=== PATIENT | female | born 1985 | race Hispanic/Latino ===

== ENCOUNTER 2017-08-28 18:41 | Outpatient (CLI) | payer MEDICAID ==
[2017-08-28 18:57] VITALS: BP 141/89
[2017-08-28] MEDS ORDERED: LACTATED RINGERS 500 ML IV ONE (19:00)
== END 2017-08-28 21:25 | disposition home or self-care (01) ==
LOC: TRG 18:41
PROVIDERS: ATTEND Obstetrics & Gynecology Gynecology
DX: O47.03 False labor before 37 completed weeks of gestation, third trimester (principal); Z3A.31 31 weeks gestation of pregnancy
CPT/HCPCS: 59025

== ENCOUNTER 2017-09-01 17:38 | Outpatient (CLI) | payer MEDICAID ==
[2017-09-01 18:37] VITALS: BP 130/66
[2017-09-01 19:27] LABS: Hematocrit 34.1 % (30.3-42.9); Hemoglobin 11.5 gm/dl (10.1-14.3); Mean Corpuscular HGB Conc 34 % (30-34); Mean Corpuscular Hemoglobin 29 pg (28-32); Mean Corpuscular Volume 87 fl (79-97); Platelet Count 208 K/mm3 (140-440); Red Blood Count 3.93 M/mm3 (3.65-5.03); Red Cell Distribution Width 12.9 % (13.2-15.2)
[2017-09-01 19:55] LABS: Alanine Aminotransferase 8 units/L (7-56); Uric Acid 2.8 mg/dL (3.5-7.6)
[2017-09-01 20:26] LABS: Bacteria,Urine 2+ /HPF (Negative); Bilirubin,Urine NEG (Negative); Blood,Urine NEG (Negative); Color,Urine Yellow (Yellow); Hyaline Casts,Urine 1 /LPF; Nitrite,Urine NEG (Negative); Protein,Urine <15 mg/dL mg/dL (Negative); Urobilinogen,Urine < 2.0 mg/dL (<2.0)
== END 2017-09-01 20:10 | disposition home or self-care (01) ==
LOC: TRG 17:38
PROVIDERS: ATTEND Obstetrics & Gynecology
DX: O47.03 False labor before 37 completed weeks of gestation, third trimester (principal); Z3A.32 32 weeks gestation of pregnancy
CPT/HCPCS: 36415; 59025; 81001; 82565; 83615; 84450; 84460; 84550; 85027

== ENCOUNTER 2017-09-16 14:39 | Outpatient (CLI) | payer MEDICAID ==
[2017-09-16 15:13] VITALS: BP 142/72
[2017-09-16] MEDS ORDERED: LACTATED RINGERS 500 ML IV ONE (17:17)
[2017-09-16 18:08] LABS: Bacteria,Urine 1+ /HPF (Negative); Bilirubin,Urine NEG (Negative); Blood,Urine NEG (Negative); Color,Urine Yellow (Yellow); Mucus,Urine 2+ /HPF; Nitrite,Urine NEG (Negative); Urobilinogen,Urine < 2.0 mg/dL (<2.0)
== END 2017-09-16 18:55 | disposition home or self-care (01) ==
LOC: TRG 14:39
PROVIDERS: ATTEND Obstetrics & Gynecology
DX: O47.03 False labor before 37 completed weeks of gestation, third trimester (principal); Z3A.34 34 weeks gestation of pregnancy
CPT/HCPCS: 59025; 81001

== ENCOUNTER 2017-09-29 14:50 | Outpatient (CLI) | payer MEDICAID ==
[2017-09-29 16:00] LABS: Hematocrit 35.2 % (30.3-42.9); Hemoglobin 11.5 gm/dl (10.1-14.3); Mean Corpuscular HGB Conc 33 % (30-34); Mean Corpuscular Hemoglobin 28 pg (28-32); Mean Corpuscular Volume 84 fl (79-97); Platelet Count 212 K/mm3 (140-440); Red Blood Count 4.17 M/mm3 (3.65-5.03); Red Cell Distribution Width 13.6 % (13.2-15.2)
[2017-09-29 16:15] LABS: Alanine Aminotransferase 7 units/L (7-56); Uric Acid 2.9 mg/dL (3.5-7.6)
[2017-09-29 16:23] VITALS: BP 116/67
[2017-09-29 18:04] LABS: Bilirubin,Urine NEG (Negative); Blood,Urine NEG (Negative); Color,Urine Yellow (Yellow); Mucus,Urine 1+ /HPF; Nitrite,Urine NEG (Negative)
[2017-09-29 18:06] LABS: Amphetamine Screen,Urine PRESUMPTIVE NEGATIVE; Benzodiazepines Screen,Urine PRESUMPTIVE NEGATIVE; Cannabinoid Screen,Urine PRESUMPTIVE NEGATIVE; Cocaine Screen,Urine PRESUMPTIVE NEGATIVE; Methadone Screen,Urine PRESUMPTIVE NEGATIVE; Opiate Screen,Urine PRESUMPTIVE NEGATIVE
== END 2017-09-29 17:35 | disposition home or self-care (01) ==
LOC: TRG 14:50
PROVIDERS: ATTEND Obstetrics & Gynecology
DX: O47.03 False labor before 37 completed weeks of gestation, third trimester (principal); Z3A.36 36 weeks gestation of pregnancy
CPT/HCPCS: 36415; 59025; 80307; 81001; 82565; 83615; 84450; 84460; 84550; 85027

== ENCOUNTER 2021-08-30 13:04 | Outpatient (CLI) | payer MEDICAID ==
[2021-08-30 15:30] VITALS: BP 131/74
--- NOTE | 2021-08-30 16:00 | Ultrasound Report ---
ULTRASOUND OBSTETRIC LIMITED ULTRASOUND BIOPHYSICAL PROFILE INDICATION / CLINICAL INFORMATION: BPP/AURELIO, placenta for vaginal bleeding. COMPARISON: None available. FINDINGS: BREATHING MOVEMENT = 2 GROSS BODY MOVEMENT = 2 TONE = 2 QUALITATIVE AMNIOTIC FLUID VOLUME = 2 TOTAL BIOPHYSICAL SCORE = 8/8 HEART RATE (beats per minute): 140 AMNIOTIC FLUID INDEX (cm) = 19.3 (normal = 7-24 cm) PRESENTATION: Cephalic. ADDITIONAL FINDINGS: None. IMPRESSION: 1. Biophysical Score = 8/8 Signer Name: Shahram Osorio MD Signed: 08/30/2021 3:55 PM Workstation Name: [id number]
== END 2021-08-30 16:20 | disposition home or self-care (01) ==
LOC: TRG 13:04 → APU 13:06 → TRG 16:20
PROVIDERS: ATTEND Obstetrics & Gynecology
DX: O46.93 Antepartum hemorrhage, unspecified, third trimester (principal); Z3A.35 35 weeks gestation of pregnancy
CPT/HCPCS: 59025; 76815; 76819

== ENCOUNTER 2021-09-03 00:53 | Outpatient (CLI) | payer MEDICAID ==
[2021-09-03 02:07] VITALS: BP 128/64
== END 2021-09-03 01:30 | disposition home or self-care (01) ==
LOC: TRG 00:53 → APU 00:56 → TRG 01:30
PROVIDERS: ATTEND Obstetrics & Gynecology
DX: Z34.93 Encounter for supervision of normal pregnancy, unspecified, third trimester (principal); Z3A.36 36 weeks gestation of pregnancy
CPT/HCPCS: 59025

== ENCOUNTER 2021-09-03 18:57 | Outpatient (CLI) | payer MEDICAID ==
[2021-09-03 20:07] VITALS: BP 128/72
[2021-09-03] MEDS ORDERED: LACTATED RINGERS 500 ML IV ONE (20:25)
== END 2021-09-03 20:51 | disposition home or self-care (01) ==
LOC: TRG 18:57 → APU 18:59 → TRG 20:51
PROVIDERS: ATTEND Obstetrics & Gynecology
DX: Z34.93 Encounter for supervision of normal pregnancy, unspecified, third trimester (principal); Z3A.36 36 weeks gestation of pregnancy
CPT/HCPCS: 59025

== ENCOUNTER 2021-09-15 19:46 | Inpatient (IN) | payer MEDICAID ==
[2021-09-15] MEDS ORDERED: MINERAL OIL 30 ML ORAL LIQD PO PRN (22:05)
[2021-09-15] MEDS ORDERED: CARBOPROST TROMETHAMINE 250 MCG/1 ML INJ IM PRN (22:05)
[2021-09-15] MEDS ORDERED: DINOPROSTONE 10 MG VAG SUPP VG ONE (22:05)
[2021-09-15] MEDS ORDERED: TERBUTALINE 1 MG/1 ML INJ SUB-Q PRN (22:05)
[2021-09-15] MEDS ORDERED: ACETAMINOPHEN 325 MG TAB PO PRN (22:05)
[2021-09-15] MEDS ORDERED: BUTORPHANOL 2 MG/1 ML INJ IV PRN ×2 (22:05)
[2021-09-15] MEDS ORDERED: LOPERAMIDE 2 MG CAP PO PRN (22:05)
[2021-09-15] MEDS ORDERED: LIDOCAINE (2%) 20 MG/1 ML VIAL 20 ML MDV INFILTRATI ONE (22:05)
[2021-09-15] MEDS ORDERED: ePHEDrine SULFATE 50 MG/1 ML INJ IV PRN (22:05)
[2021-09-15] MEDS ORDERED: METHYLERGONOVINE MALEATE 0.2 MG/ML VIAL IM PRN (22:05)
[2021-09-15] MEDS ORDERED: miSOPROStol 200 MCG TAB PR PRN (22:05)
[2021-09-15] MEDS ORDERED: OXYTOCIN 10 UNIT/1 ML INJ IM PRN (22:05)
[2021-09-15] MEDS ORDERED: fentaNYL 100 MCG/2 ML INJ IV PRN (22:05)
[2021-09-15] MEDS ORDERED: ZOLPIDEM 5 MG TAB PO PRN (22:13)
[2021-09-15] MEDS ORDERED: OXYTOCIN DRIP 30 UNITS/500 ML BAG IV SCH (23:00)
[2021-09-15 23:13] LABS: Hematocrit 29.8 % (30.3-42.9); Hemoglobin 9.3 gm/dl (10.1-14.3); Mean Corpuscular HGB Conc 31 % (30-34); Mean Corpuscular Volume 77 fl (79-97); Platelet Count 205 K/mm3 (140-440); Red Blood Count 3.89 M/mm3 (3.65-5.03); Red Cell Distribution Width 16.1 % (13.2-15.2)
[2021-09-16] MEDS: LACTATED RINGERS 1,000 ML IV SCH ×3 (05:07→22:20)
--- NOTE | 2021-09-16 08:33 | History and Physical Report ---
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 has been complicated by morbid obesity, GDM, anemia and CHTN (co-managed by [facility]). She presents to [facility] last night for scheduled IOL secondary to GDM, CHTN and MO. Reports positive FM. Denies any VB or LOF. Labs: O+, antibody negative; rubella immune; HBsAg negative HIV negative; HSV2 ne gative; Miguel Angel C negative; GC/Chlamydia negative; 1hr gtt 155; TSH 4.9; AST- 11; ALT-5; GBS negative. Past History Past Medical History: hypertension (chronic), other (anemia; morbid obesity) Past Surgical History: no surgical history Family/Genetic History: diabetes, heart disease, hypertension, other (thyroid disease) Social history: single, lives with family, full code. denies: smoking, alcohol abuse, prescription drug abuse, IV drug use - Obstetrical History Expected Date of Delivery: 09/29/21 Actual Gestation: 38 Week(s) 1 Day(s) : 2 Para: 1 Hx # Term Pregnancies: 1 Number of Pregnancies: 0 Spontaneous Abortions: 0 Induced : 0 Number of Living Children: 1 #1 Infant Gender: Female year: Method of Delivery: Vaginal Gestational age at delivery: 41 Complications: none Medications and Allergies Allergies Allergy/AdvReac Type Severity Reaction Status Date / Time Penicillins Allergy Anaphylaxis Verified 08/30/21 13:19 Home Medications Medication Instructions Recorded Confirmed Last Taken Type 21/Iron Fu/Folic Acid 1 each PO DAILY 08/28/17 09/03/21 09/02/21 10:00 History [ Complete Caplet] labetaloL [Labetalol 100mg TAB] 100 mg PO BID #60 tablet 10/27/17 09/03/21 09/03/21 01:30 Rx Active Meds: Active Medications Acetaminophen (Acetaminophen 325 Mg Tab) 650 mg PO Q4H PRN PRN Reason: Pain, Mild (1-3) Butorphanol Tartrate (Butorphanol 2 Mg/1 Ml Inj) 1 mg IV Q2H PRN PRN Reason: Pain, Moderate(4-6) LABOR PAIN Last Admin: 09/16/21 05:00 Dose: 1 mg Butorphanol Tartrate (Butorphanol 2 Mg/1 Ml Inj) 2 mg IV Q2H PRN PRN Reason: Pain , Severe (7-10) Carboprost Tromethamine (Carboprost Tromethamine 250 Mcg/1 Ml Inj) 250 mcg IM ONCE PRN PRN Reason: Uterine Bleeding Ephedrine Sulfate (Ephedrine Sulfate 50 Mg/1 Ml Inj) 10 mg IV Q2M PRN PRN Reason: Hypotension Fentanyl (Fentanyl 100 Mcg/2 Ml Inj) 100 mcg IV Q2H PRN PRN Reason: Pain,Severe (7-10) LABOR PAIN Oxytocin/Sodium Chloride (Pitocin/Ns 30 Unit/500ml) 30 units in 500 mls @ 2 mls/hr IV TITR MINDY; Protocol Lactated Ringer's (Lactated Ringers) 1,000 mls @ 125 mls/hr IV DIRECT MINDY Last Admin: 09/16/21 05:07 Dose: 125 mls/hr Oxytocin/Sodium Chloride (Pitocin/Ns 30 Unit/500ml) 30 units in 500 mls @ 40 mls/hr IV TITR MINDY; Protocol Labetalol HCl (Labetalol 100 Mg Tab) 100 mg PO BID MINDY Loperamide HCl (Loperamide 2 Mg Cap) 2 mg PO ONCE PRN PRN Reason: give with Hemabate Mineral Oil (Mineral Oil 30 Ml Oral Liqd) 30 ml PO QHS PRN PRN Reason: Constipation Misoprostol (Misoprostol 200 Mcg Tab) 800 mcg VA ONCE PRN PRN Reason: Uterine Bleeding Oxytocin (Oxytocin 10 Unit/1 Ml Inj) 10 unit IM ONCE PRN PRN Reason: Uterine Bleeding Terbutaline Sulfate (Terbutaline 1 Mg/1 Ml Inj) 0.25 mg SUB-Q ONCE PRN PRN Reason: Hyperstimulation/Hypertonicity Zolpidem Tartrate (Zolpidem 5 Mg Tab) 5 mg PO QHS PRN PRN Reason: Sleep Last Admin: 09/16/21 01:40 Dose: 5 mg - Vital Signs Vital signs: Vital Signs Temp Pulse Resp BP 98.2 F 94 H 12 138/63 09/15/21 21:29 09/15/21 21:29 09/15/21 21:29 09/15/21 21:29 Temp Pulse Resp BP Pulse Ox 98.2 F 102 H 12 114/62 99 09/15/21 21:29 09/16/21 08:25 09/15/21 21:29 09/16/21 07:28 09/16/21 08:25 - Physical Exam Breasts: Positive: normal Cardiovascular: Regular rate Lungs: Positive: Normal air movement Abdomen: Positive: other (obese) Genitourinary (Female): Positive: normal external genitalia Uterus: Positive: enlarged (S>D) - Obstetrical FHR: category 1 Uterine Contraction Monitor Mode: External Uterine Contraction Pattern: Irregular Uterine Tone Measurement Phase: Resting Uterine Contraction Intensity: Mild Results Result Diagrams: 09/15/21 21:45 Abnormal lab results 09/15/21 Range/Units 21:45 Hgb 9.3 L (10.1-14.3) gm/dl Hct 29.8 L (30.3-42.9) % MCV 77 L (79-97) fl MCH 24 L (28-32) pg RDW 16.1 H (13.2-15.2) % All other labs normal. Assessment and Plan - Patient Problems (1) Encounter for induction of labor Current Visit: Yes Status: Acute Plan to address problem: Cervidil in place, remove after 12 hrs Pain meds as desired per orders Anticipate (2) Chronic hypertension Current Visit: Yes Status: Acute Plan to address problem: Monitor B/P closely (3) Gestational diabetes Current Visit: Yes Status: Acute Qualifiers: Gestational diabetes mellitus control: diet-controlled Plan to address problem: Monitor B/P as ordered (4) Morbid obesity with BMI of 50.0-59.9, adult Current Visit: Yes Status: Acute
--- NOTE | 2021-09-16 14:09 | Progress Note ---
Assessment and Plan - Patient Problems (1) Encounter for induction of labor Current Visit: Yes Status: Acute Plan to address problem: S/P Cervidil Initiate cytotec 50mcg po q 4 hr x 4 doses as tolerated Pain meds as desired per orders Anticipate (2) Chronic hypertension Current Visit: Yes Status: Acute Plan to address problem: Monitor B/P closely (3) Gestational diabetes Current Visit: Yes Status: Acute Qualifiers: Gestational diabetes mellitus control: diet-controlled Plan to address problem: Monitor B/P as ordered (4) Morbid obesity with BMI of 50.0-59.9, adult Current Visit: Yes Status: Acute Subjective - Subjective Date of service: 09/16/21 Principal diagnosis: IOL; CHTN; GDM Interval history: 36 yo, @ 38.1 wks, 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 has been complicated by morbid obesity, GDM, anemia and CHTN (co-managed by [facility]). She presents to [facility] last night for scheduled IOL secondary to GDM, CHTN and MO. Reports positive FM. Denies any VB or LOF. Labs: O+, antibody negative; rubella immune; HBsAg negative HIV negative; HSV2 negative; Miguel Angel C negative; GC/Chlamydia negative; 1hr gtt 155; TSH 4.9; AST- 11; ALT-5; GBS negative. Patient reports: movement normal, contractions, no new complaints, no loss of fluid, no vaginal bleeding Objective - Vital Signs Vital Signs: Vital Signs - 12hr 09/16/21 09/16/21 09/16/21 02:09 02:14 02:19 Temperature Pulse Rate 90 85 111 H Respiratory Rate Blood Pressure O2 Sat by Pulse 97 97 96 Oximetry 09/16/21 09/16/21 09/16/21 02:24 02:29 02:30 Temperature Pulse Rate 109 H 92 H 95 H Respiratory Rate Blood Pressure 120/60 O2 Sat by Pulse 96 96 Oximetry 09/16/21 09/16/21 09/16/21 02:34 02:39 02:44 Temperature Pulse Rate 106 H 104 H 121 H Respiratory Rate Blood Pressure O2 Sat by Pulse 98 97 96 Oximetry 09/16/21 09/16/21 09/16/21 02:49 02:54 02:59 Temperature Pulse Rate 97 H 98 H 111 H Respiratory Rate Blood Pressure O2 Sat by Pulse 97 96 98 Oximetry 09/16/21 09/16/21 09/16/21 03:04 03:07 03:09 Temperature Pulse Rate 95 H 89 112 H Respiratory Rate Blood Pressure O2 Sat by Pulse 98 94 96 Oximetry 09/16/21 09/16/21 09/16/21 03:14 03:19 03:24 Temperature Pulse Rate 92 H 113 H 103 H Respiratory Rate Blood Pressure O2 Sat by Pulse 97 98 98 Oximetry 09/16/21 09/16/21 09/16/21 03:29 03:34 03:39 Temperature Pulse Rate 94 H 101 H 101 H Respiratory Rate Blood Pressure 119/77 O2 Sat by Pulse 98 98 98 Oximetry 09/16/21 09/16/21 09/16/21 03:44 03:49 03:54 Temperature Pulse Rate 86 108 H 106 H Respiratory Rate Blood Pressure O2 Sat by Pulse 98 98 98 Oximetry 09/16/21 09/16/21 09/16/21 03:59 04:00 04:04 Temperature Pulse Rate 101 H 112 H 105 H Respiratory Rate Blood Pressure 124/64 O2 Sat by Pulse 99 94 96 Oximetry 09/16/21 09/16/21 09/16/21 04:09 04:14 04:19 Temperature Pulse Rate 112 H 108 H 90 Respiratory Rate Blood Pressure O2 Sat by Pulse 99 98 96 Oximetry 09/16/21 09/16/21 09/16/21 04:24 04:29 04:30 Temperature Pulse Rate 86 117 H 105 H Respiratory Rate Blood Pressure 117/76 O2 Sat by Pulse 97 98 Oximetry 09/16/21 09/16/21 09/16/21 04:31 04:34 04:39 Temperature Pulse Rate 113 H 97 H 126 H Respiratory Rate Blood Pressure O2 Sat by Pulse 0 L 99 99 Oximetry 09/16/21 09/16/21 09/16/21 04:44 04:49 04:54 Temperature Pulse Rate 113 H 110 H 107 H Respiratory Rate Blood Pressure O2 Sat by Pulse 97 98 99 Oximetry 09/16/21 09/16/21 09/16/21 04:59 05:02 05:04 Temperature Pulse Rate 104 H 99 H 109 H Respiratory Rate Blood Pressure 124/86 O2 Sat by Pulse 95 96 Oximetry 09/16/21 09/16/21 09/16/21 05:09 05:14 05:19 Temperature Pulse Rate 101 H 112 H 100 H Respiratory Rate Blood Pressure O2 Sat by Pulse 97 95 96 Oximetry 09/16/21 09/16/21 09/16/21 05:24 05:25 05:29 Temperature Pulse Rate 102 H 104 H 99 H Respiratory Rate Blood Pressure 115/60 O2 Sat by Pulse 95 94 95 Oximetry 09/16/21 09/16/21 09/16/21 05:34 05:39 05:42 Temperature Pulse Rate 105 H 101 H 91 H Respiratory Rate Blood Pressure O2 Sat by Pulse 96 95 94 Oximetry 09/16/21 09/16/21 09/16/21 05:44 05:49 05:53 Temperature Pulse Rate 97 H 105 H 90 Respiratory Rate Blood Pressure O2 Sat by Pulse 95 97 94 Oximetry 09/16/21 09/16/21 09/16/21 05:55 05:58 06:00 Temperature Pulse Rate 90 88 95 H Respiratory Rate Blood Pressure 108/58 O2 Sat by Pulse 94 97 Oximetry 09/16/21 09/16/21 09/16/21 06:05 06:10 06:14 Temperature Pulse Rate 90 86 94 H Respiratory Rate Blood Pressure O2 Sat by Pulse 97 96 91 Oximetry 09/16/21 09/16/21 09/16/21 06:15 06:20 06:25 Temperature Pulse Rate 95 H 88 95 H Respiratory Rate Blood Pressure O2 Sat by Pulse 92 96 96 Oximetry 09/16/21 09/16/21 09/16/21 06:28 06:30 06:35 Temperature Pulse Rate 86 91 H 93 H Respiratory Rate Blood Pressure 112/67 O2 Sat by Pulse 96 97 Oximetry 09/16/21 09/16/21 09/16/21 06:40 06:45 06:50 Temperature Pulse Rate 86 95 H 95 H Respiratory Rate Blood Pressure O2 Sat by Pulse 94 97 97 Oximetry 09/16/21 09/16/21 09/16/21 06:55 06:58 07:00 Temperature Pulse Rate 87 82 89 Respiratory Rate Blood Pressure 126/87 O2 Sat by Pulse 97 96 Oximetry 09/16/21 09/16/21 09/16/21 07:05 07:10 07:13 Temperature Pulse Rate 88 86 83 Respiratory Rate Blood Pressure O2 Sat by Pulse 95 96 92 Oximetry 09/16/21 09/16/21 09/16/21 07:15 07:20 07:25 Temperature Pulse Rate 93 H 90 111 H Respiratory Rate Blood Pressure O2 Sat by Pulse 100 96 99 Oximetry 09/16/21 09/16/21 09/16/21 07:28 07:30 07:33 Temperature Pulse Rate 92 H 97 H 104 H Respiratory Rate Blood Pressure 114/62 O2 Sat by Pulse 93 91 Oximetry 09/16/21 09/16/21 09/16/21 07:35 07:39 08:00 Temperature Pulse Rate 94 H 102 H Respiratory Rate Blood Pressure O2 Sat by Pulse 99 84 98 Oximetry 09/16/21 09/16/21 09/16/21 08:05 08:10 08:12 Temperature Pulse Rate 100 H 115 H 29 L Respiratory Rate Blood Pressure O2 Sat by Pulse 98 97 93 Oximetry 09/16/21 09/16/21 09/16/21 08:15 08:20 08:25 Temperature Pulse Rate 101 H 106 H 102 H Respiratory Rate Blood Pressure O2 Sat by Pulse 98 98 99 Oximetry 09/16/21 09/16/21 09/16/21 08:30 08:35 08:36 Temperature Pulse Rate 105 H 100 H 66 Respiratory Rate Blood Pressure O2 Sat by Pulse 97 99 84 Oximetry 09/16/21 09/16/21 09/16/21 08:40 08:45 08:50 Temperature Pulse Rate 103 H 109 H 109 H Respiratory Rate Blood Pressure O2 Sat by Pulse 96 98 96 Oximetry 09/16/21 09/16/21 09/16/21 08:54 08:55 09:00 Temperature Pulse Rate 92 H 92 H 98 H Respiratory Rate Blood Pressure O2 Sat by Pulse 94 95 99 Oximetry 09/16/21 09/16/21 09/16/21 09:05 09:10 09:15 Temperature Pulse Rate 92 H 93 H 104 H Respiratory Rate Blood Pressure O2 Sat by Pulse 97 97 96 Oximetry 09/16/21 09/16/21 09/16/21 09:20 09:23 09:25 Temperature Pulse Rate 98 H 105 H 89 Respiratory Rate Blood Pressure O2 Sat by Pulse 96 90 96 Oximetry 09/16/21 09/16/21 09/16/21 09:30 09:35 09:40 Temperature Pulse Rate 102 H 93 H 96 H Respiratory Rate Blood Pressure 109/55 O2 Sat by Pulse 98 99 96 Oximetry 09/16/21 09/16/21 09/16/21 09:43 09:45 09:50 Temperature 98.7 F Pulse Rate 92 H 94 H 92 H Respiratory 16 Rate Blood Pressure O2 Sat by Pulse 96 96 Oximetry 09/16/21 09/16/21 09/16/21 09:54 09:55 09:58 Temperature Pulse Rate 103 H 90 94 H Respiratory Rate Blood Pressure 95/51 O2 Sat by Pulse 93 95 Oximetry 09/16/21 09/16/21 09/16/21 10:00 10:05 10:06 Temperature Pulse Rate 88 91 H 90 Respiratory Rate Blood Pressure O2 Sat by Pulse 94 95 94 Oximetry 09/16/21 09/16/21 09/16/21 10:10 10:11 10:15 Temperature Pulse Rate 92 H 94 H 96 H Respiratory Rate Blood Pressure O2 Sat by Pulse 94 94 93 Oximetry 09/16/21 09/16/21 09/16/21 10:17 10:20 10:25 Temperature Pulse Rate 89 95 H 93 H Respiratory Rate Blood Pressure O2 Sat by Pulse 93 95 95 Oximetry 09/16/21 09/16/21 09/16/21 10:28 10:30 10:34 Temperature Pulse Rate 87 90 86 Respiratory Rate Blood Pressure 101/55 O2 Sat by Pulse 96 94 Oximetry 09/16/21 09/16/21 09/16/21 10:35 10:40 10:45 Temperature Pulse Rate 91 H 96 H 91 H Respiratory Rate Blood Pressure O2 Sat by Pulse 94 96 97 Oximetry 09/16/21 09/16/21 09/16/21 10:50 10:55 10:58 Temperature Pulse Rate 92 H 92 H 93 H Respiratory Rate Blood Pressure 115/56 O2 Sat by Pulse 96 96 Oximetry 09/16/21 09/16/21 09/16/21 11:00 11:05 11:10 Temperature Pulse Rate 92 H 91 H 92 H Respiratory Rate Blood Pressure O2 Sat by Pulse 96 98 97 Oximetry 09/16/21 09/16/21 09/16/21 11:15 11:20 11:25 Temperature Pulse Rate 89 94 H 107 H Respiratory Rate Blood Pressure O2 Sat by Pulse 98 97 98 Oximetry 09/16/21 09/16/21 09/16/21 11:28 11:30 11:33 Temperature Pulse Rate 86 88 91 H Respiratory Rate Blood Pressure 115/56 O2 Sat by Pulse 96 93 Oximetry 01/09/16/21 09/16/21 11:35 11:40 11:42 Temperature Pulse Rate 92 H 87 85 Respiratory Rate Blood Pressure O2 Sat by Pulse 94 96 94 Oximetry 09/16/21 09/16/21 09/16/21 11:45 11:49 11:50 Temperature Pulse Rate 91 H 85 86 Respiratory Rate Blood Pressure O2 Sat by Pulse 95 94 96 Oximetry 09/16/21 09/16/21 09/16/21 11:55 11:58 12:00 Temperature Pulse Rate 91 H 88 91 H Respiratory Rate Blood Pressure 113/54 O2 Sat by Pulse 96 95 Oximetry 09/16/21 09/16/21 09/16/21 12:05 12:10 12:15 Temperature Pulse Rate 89 85 86 Respiratory Rate Blood Pressure O2 Sat by Pulse 98 97 97 Oximetry 09/16/21 09/16/21 09/16/21 12:20 12:25 12:29 Temperature Pulse Rate 104 H 94 H 90 Respiratory Rate Blood Pressure 118/58 O2 Sat by Pulse 97 97 Oximetry 09/16/21 09/16/21 09/16/21 12:30 12:35 12:39 Temperature Pulse Rate 89 101 H 96 H Respiratory Rate Blood Pressure O2 Sat by Pulse 97 97 93 Oximetry 09/16/21 12:40 Temperature Pulse Rate 92 H Respiratory Rate Blood Pressure O2 Sat by Pulse 96 Oximetry - Exam Breasts: deferred Cardiovascular: Regular rate Lungs: Normal air movement FHR: category 1 Uterine Contraction Monitor Mode: External Cervical Dilatation: 1 (per RN) Cervical Effacement Percentage: 30 station: -3 Uterine Contraction Pattern: Irregular Uterine Tone Measurement Phase: Resting Uterine Contraction Intensity: Mild Extremities: edema - Labs Labs: Abnormal Labs 09/15/21 21:45 Hgb 9.3 L Hct 29.8 L MCV 77 L MCH 24 L RDW 16.1 H Laboratory Results - last 24 hr 09/15/21 09/15/21 09/16/21 21:45 21:45 00:07 WBC 9.1 RBC 3.89 Hgb 9.3 L Hct 29.8 L MCV 77 L MCH 24 L MCHC 31 RDW 16.1 H Plt Count 205 POC Glucose 77 SARS-CoV-2 (PCR) Blood Type O POSITIVE Antibody Screen Negative 09/16/21 09:33 WBC RBC Hgb Hct MCV MCH MCHC RDW Plt Count POC Glucose SARS-CoV-2 (PCR) Negative Blood Type Antibody Screen
[2021-09-16] MEDS: miSOPROStol 25 MCG TAB PO PRN ×2 (14:35→23:26)
[2021-09-16] MEDS ORDERED: NALOXONE 2 MG/2 ML INJ IV PRN (21:11)
[2021-09-16] MEDS ORDERED: ePHEDrine SULFATE 50 MG/1 ML INJ IV PRN (21:11)
--- NOTE | 2021-09-16 21:13 | Anesthesia Consultation ---
Anesthesia Consult and Med Hx Date of service: 09/16/21 - Airway Anesthetic Teeth Evaluation: Poor ROM Head & Neck: Adequate Mental/Hyoid Distance: Adequate Mallampati Class: Class III Intubation Access Assessment: Probably Good - Pulmonary Exam CTA: Yes - Cardiac Exam Cardiac Exam: RRR - Pre-Operative Health Status ASA Pre-Surgery Classification: ASA3 Proposed Anesthetic Plan: Epidural - Pulmonary Hx Smoking: No Hx Asthma: No Hx Respiratory Symptoms: No SOB: No COPD: No Home Oxygen Therapy: No Hx Pneumonia: No - Cardiovascular System Hx Hypertension: Yes Hx Coronary Artery Disease: No Hx Heart Attack/AMI: No Hx Angina: No Hx Percutaneous Transluminal Coronary Angioplasty (PTCA): No Hx Cardia Arrhythmia: No Hx Pacemaker: No Hx Internal Defibrillator: No Hx Valvular Heart Disease: No Hx Heart Murmur: No Hx Peripheral Vascular Disease: No - Central Nervous System Hx Neuromuscular Disorder: No Hx Seizures: No CVA: No Hx Back Pain: Yes Hx Psychiatric Problems: No - Gastrointestinal Hx Gastroesophageal Reflux Disease: Yes - Endocrine Hx Renal Disease: No Hx End Stage Renal Disease: No Hx Liver Disease: No Hx Non-Insulin Dependent Diabetes: Yes Hx Thyroid Disease: No Hx Hypothyroidism: No Hx Hyperthyroidism: No - Hematic Hx Anemia: Yes Hx Sickle Cell Disease: No - Other Systems Hx Alcohol Use: No Hx Obesity: Yes (morbid obesity BMI 57)
[2021-09-16] MEDS ORDERED: BUPIVACAINE/PF (0.25%) 2.5 MG/ML 10 ML VIAL INFILTRATI ONE (21:18)
--- NOTE | 2021-09-16 22:02 | Progress Note ---
Labor Epidural - Labor Epidural Start Time: 21:28 Stop Time: 21:39 Performed by:: SUMMER DUTTA Procedure: Patient is requesting epidural for labor pain. H&P and labs reviewed. Procedure explained, questions answered, consent obtained. Patient placed in sitting position with monitors applied. Timeout performed immediately before start of procedure. Prep/drape in usual sterile fashion. Skin localized 3 mL 1% lidocaine at L[3]-L[4] interspace. 17-gauge Touhy epidural needle advanced to AILYN with saline at [8] cm. No blood/CSF noted via epidural needle. Epidural catheter advanced to [12] cm. Negative aspiration for blood and CSF via catheter, negative response to test dose 3 ml 1.5% lidocaine w/ epi. Sterile dressing applied followed by tape reinforcement. Patient tolerated procedure well. No immediate complications noted.
[2021-09-16] MEDS: fentaNYL-BUPIV 2 MCG/ML-0.125% 200 MCG/100 ML BAG EPIDURAL SCH (22:23)
[2021-09-17] MEDS: OXYTOCIN DRIP 30 UNITS/500 ML BAG IV SCH ×2 (05:19→22:51)
[2021-09-17] MEDS ORDERED: SODIUM CHLORIDE 0.9% 1000 ML 1,000 ML VG SCH (12:30)
[2021-09-17] MEDS: fentaNYL-BUPIV 2 MCG/ML-0.125% 200 MCG/100 ML BAG EPIDURAL SCH ×2 (13:41→19:38)
[2021-09-17] MEDS: LACTATED RINGERS 1,000 ML IV SCH (13:41)
--- NOTE | 2021-09-17 13:50 | Progress Note ---
Assessment and Plan - Patient Problems (1) Encounter for induction of labor Current Visit: Yes Status: Acute Plan to address problem: AROM @ 0840, clear fluids IUPC and FSE placed without difficulty Continue Pitcon titration until adequate ctxs maintained as tolerated Epidural in place Anticipate (2) Chronic hypertension Current Visit: Yes Status: Acute Plan to address problem: Monitor B/P closely (3) Gestational diabetes Current Visit: Yes Status: Acute Qualifiers: Gestational diabetes mellitus control: diet-controlled Plan to address problem: Monitor blood glucose levels as ordered (4) Morbid obesity with BMI of 50.0-59.9, adult Current Visit: Yes Status: Acute Subjective - Subjective Date of service: 09/17/21 Principal diagnosis: IOL; CHTN; GDM Interval history: 36 yo, @ 38.1 wks, initiated care with [facility] at 10 wks gestation. has been complicated by morbid obesity, GDM, anemia and CHTN (co-managed by [facility]). She presents to [facility] last night for scheduled IOL secondary to GDM, CHTN and MO. Reports positive FM. Denies any VB or LOF. Labs: O+, antibody negative; rubella immune; HBsAg negative HIV negative; HSV2 negative; Miguel Angel C negative; GC/Chlamydia negative; 1hr gtt 155; TSH 4.9; AST- 11; ALT-5; GBS negative. Patient reports: movement normal, contractions, no new complaints, no loss of fluid, no vaginal bleeding Objective - Vital Signs Vital Signs: Vital Signs - 12hr 09/17/21 09/17/21 09/17/21 01:47 01:52 01:57 Temperature Pulse Rate 113 H 97 H 107 H Respiratory Rate Blood Pressure Blood Pressure [Left] O2 Sat by Pulse 99 98 99 Oximetry O2 Sat by Pulse Oximetry [ Bilateral] 09/17/21 09/17/21 09/17/21 02:02 02:07 02:11 Temperature Pulse Rate 90 99 H 101 H Respiratory Rate Blood Pressure 137/66 Blood Pressure [Left] O2 Sat by Pulse 99 99 Oximetry O2 Sat by Pulse Oximetry [ Bilateral] 09/17/21 09/17/21 09/17/21 02:12 02:17 02:18 Temperature Pulse Rate 100 H 95 H 101 H Respiratory Rate Blood Pressure 137/66 Blood Pressure [Left] O2 Sat by Pulse 98 98 Oximetry O2 Sat by Pulse Oximetry [ Bilateral] 09/17/21 09/17/21 09/17/21 02:22 02:27 02:32 Temperature Pulse Rate 101 H 98 H 100 H Respiratory Rate Blood Pressure Blood Pressure [Left] O2 Sat by Pulse 98 98 98 Oximetry O2 Sat by Pulse Oximetry [ Bilateral] 09/17/21 09/17/21 09/17/21 02:37 02:40 02:42 Temperature Pulse Rate 102 H 88 96 H Respiratory Rate Blood Pressure 136/71 Blood Pressure [Left] O2 Sat by Pulse 98 99 Oximetry O2 Sat by Pulse Oximetry [ Bilateral] 09/17/21 09/17/21 09/17/21 02:47 02:52 02:57 Temperature Pulse Rate 94 H 94 H 93 H Respiratory Rate Blood Pressure Blood Pressure [Left] O2 Sat by Pulse 98 99 98 Oximetry O2 Sat by Pulse Oximetry [ Bilateral] 09/17/21 09/17/21 09/17/21 03:02 03:07 03:12 Temperature Pulse Rate 98 H 95 H 90 Respiratory Rate Blood Pressure Blood Pressure [Left] O2 Sat by Pulse 98 98 97 Oximetry O2 Sat by Pulse Oximetry [ Bilateral] 09/17/21 09/17/21 09/17/21 03:17 03:22 03:27 Temperature Pulse Rate 96 H 91 H 102 H Respiratory Rate Blood Pressure Blood Pressure [Left] O2 Sat by Pulse 98 99 99 Oximetry O2 Sat by Pulse Oximetry [ Bilateral] 09/17/21 09/17/21 09/17/21 03:32 03:37 03:41 Temperature Pulse Rate 107 H 103 H 99 H Respiratory Rate Blood Pressure 136/88 Blood Pressure [Left] O2 Sat by Pulse 98 99 Oximetry O2 Sat by Pulse Oximetry [ Bilateral] 09/17/21 09/17/21 09/17/21 03:42 03:47 03:52 Temperature Pulse Rate 89 97 H 95 H Respiratory Rate Blood Pressure Blood Pressure [Left] O2 Sat by Pulse 99 99 98 Oximetry O2 Sat by Pulse Oximetry [ Bilateral] 09/17/21 09/17/21 09/17/21 03:57 04:02 04:07 Temperature Pulse Rate 101 H 93 H 94 H Respiratory Rate Blood Pressure Blood Pressure [Left] O2 Sat by Pulse 98 98 98 Oximetry O2 Sat by Pulse Oximetry [ Bilateral] 09/17/21 09/17/2122 04:10 04:12 04:17 Temperature Pulse Rate 90 101 H 90 Respiratory Rate Blood Pressure 133/60 Blood Pressure [Left] O2 Sat by Pulse 98 98 Oximetry O2 Sat by Pulse Oximetry [ Bilateral] 09/17/21 09/17/21 09/17/21 04:22 04:27 04:32 Temperature Pulse Rate 89 89 90 Respiratory Rate Blood Pressure Blood Pressure [Left] O2 Sat by Pulse 99 98 99 Oximetry O2 Sat by Pulse Oximetry [ Bilateral] 09/17/21 09/17/21 09/17/21 04:37 04:42 04:43 Temperature Pulse Rate 93 H 97 H 86 Respiratory Rate Blood Pressure 135/81 Blood Pressure [Left] O2 Sat by Pulse 98 97 Oximetry O2 Sat by Pulse Oximetry [ Bilateral] 09/17/21 09/17/21 09/17/21 04:47 04:52 04:57 Temperature Pulse Rate 98 H 92 H 94 H Respiratory Rate Blood Pressure Blood Pressure [Left] O2 Sat by Pulse 98 98 97 Oximetry O2 Sat by Pulse Oximetry [ Bilateral] 09/17/21 09/17/21 09/17/21 05:02 05:07 05:12 Temperature Pulse Rate 90 99 H 94 H Respiratory Rate Blood Pressure Blood Pressure [Left] O2 Sat by Pulse 98 98 97 Oximetry O2 Sat by Pulse Oximetry [ Bilateral] 09/17/21 09/17/21 09/17/21 05:17 05:22 05:27 Temperature Pulse Rate 93 H 103 H 94 H Respiratory Rate Blood Pressure Blood Pressure [Left] O2 Sat by Pulse 98 99 98 Oximetry O2 Sat by Pulse Oximetry [ Bilateral] 09/17/21 09/17/21 09/17/21 05:32 05:37 05:40 Temperature Pulse Rate 86 88 87 Respiratory Rate Blood Pressure 112/57 Blood Pressure [Left] O2 Sat by Pulse 98 97 Oximetry O2 Sat by Pulse Oximetry [ Bilateral] 09/17/21 09/17/21 09/17/21 05:42 05:47 05:52 Temperature Pulse Rate 87 86 88 Respiratory Rate Blood Pressure Blood Pressure [Left] O2 Sat by Pulse 97 98 97 Oximetry O2 Sat by Pulse Oximetry [ Bilateral] 09/17/21 09/17/21 09/17/21 05:57 06:02 06:07 Temperature Pulse Rate 88 86 88 Respiratory Rate Blood Pressure Blood Pressure [Left] O2 Sat by Pulse 98 98 97 Oximetry O2 Sat by Pulse Oximetry [ Bilateral] 09/17/21 09/17/21 09/17/21 06:12 06:17 06:22 Temperature Pulse Rate 92 H 93 H 95 H Respiratory Rate Blood Pressure Blood Pressure [Left] O2 Sat by Pulse 97 99 98 Oximetry O2 Sat by Pulse Oximetry [ Bilateral] 09/17/21 09/17/21 09/17/21 06:27 06:32 06:37 Temperature Pulse Rate 90 91 H 89 Respiratory Rate Blood Pressure Blood Pressure [Left] O2 Sat by Pulse 99 98 99 Oximetry O2 Sat by Pulse Oximetry [ Bilateral] 09/17/21 09/17/21 09/17/21 06:42 06:43 06:47 Temperature Pulse Rate 88 88 97 H Respiratory Rate Blood Pressure 120/60 Blood Pressure [Left] O2 Sat by Pulse 99 99 Oximetry O2 Sat by Pulse Oximetry [ Bilateral] 09/17/21 09/17/21 09/17/21 06:52 06:57 07:02 Temperature Pulse Rate 90 91 H 92 H Respiratory Rate Blood Pressure Blood Pressure [Left] O2 Sat by Pulse 99 98 98 Oximetry O2 Sat by Pulse Oximetry [ Bilateral] 09/17/21 09/17/21 09/17/21 07:07 07:10 07:12 Temperature Pulse Rate 92 H 87 90 Respiratory Rate Blood Pressure 117/55 Blood Pressure [Left] O2 Sat by Pulse 99 98 Oximetry O2 Sat by Pulse Oximetry [ Bilateral] 09/17/21 09/17/21 09/17/21 07:17 07:22 07:24 Temperature Pulse Rate 91 H 89 93 H Respiratory Rate Blood Pressure 110/58 Blood Pressure [Left] O2 Sat by Pulse 99 98 Oximetry O2 Sat by Pulse Oximetry [ Bilateral] 09/17/21 09/17/21 09/17/21 07:25 07:27 07:32 Temperature Pulse Rate 93 H 96 H Respiratory Rate Blood Pressure Blood Pressure [Left] O2 Sat by Pulse 99 99 Oximetry O2 Sat by Pulse 99 Oximetry [ Bilateral] 09/17/21 09/17/21 09/17/21 07:33 07:37 07:40 Temperature 98.1 F Pulse Rate 95 H 94 H 90 Respiratory 20 Rate Blood Pressure 122/58 Blood Pressure 110/58 [Left] O2 Sat by Pulse 98 99 Oximetry O2 Sat by Pulse Oximetry [ Bilateral] 09/17/21 09/17/21 09/17/21 07:42 07:47 07:52 Temperature Pulse Rate 93 H 92 H 95 H Respiratory Rate Blood Pressure Blood Pressure [Left] O2 Sat by Pulse 99 99 98 Oximetry O2 Sat by Pulse Oximetry [ Bilateral] 09/17/21 09/17/21 09/17/21 07:57 08:02 08:07 Temperature Pulse Rate 94 H 95 H 95 H Respiratory Rate Blood Pressure Blood Pressure [Left] O2 Sat by Pulse 98 98 99 Oximetry O2 Sat by Pulse Oximetry [ Bilateral] 09/17/21 09/17/21 09/17/21 08:12 08:17 08:22 Temperature Pulse Rate 94 H 92 H 91 H Respiratory Rate Blood Pressure 119/50 Blood Pressure [Left] O2 Sat by Pulse 99 98 99 Oximetry O2 Sat by Pulse Oximetry [ Bilateral] 09/17/21 09/17/21 09/17/21 08:27 08:32 08:37 Temperature Pulse Rate 93 H 102 H 96 H Respiratory Rate Blood Pressure Blood Pressure [Left] O2 Sat by Pulse 98 98 99 Oximetry O2 Sat by Pulse Oximetry [ Bilateral] 09/17/21 09/17/21 09/17/21 08:42 08:47 08:52 Temperature 98.6 F Pulse Rate 100 H 101 H 91 H Respiratory Rate Blood Pressure Blood Pressure [Left] O2 Sat by Pulse 99 99 99 Oximetry O2 Sat by Pulse Oximetry [ Bilateral] 09/17/21 09/17/21 09/17/21 08:57 09:02 09:07 Temperature Pulse Rate 95 H 94 H 97 H Respiratory Rate Blood Pressure Blood Pressure [Left] O2 Sat by Pulse 100 97 98 Oximetry O2 Sat by Pulse Oximetry [ Bilateral] 09/17/21 09/17/21 09/17/21 09:10 09:12 09:17 Temperature Pulse Rate 100 H 98 H 99 H Respiratory Rate Blood Pressure 134/69 Blood Pressure [Left] O2 Sat by Pulse 98 98 Oximetry O2 Sat by Pulse Oximetry [ Bilateral] 09/17/21 09/17/21 09/17/21 09:22 09:27 09:32 Temperature Pulse Rate 95 H 87 112 H Respiratory Rate Blood Pressure Blood Pressure [Left] O2 Sat by Pulse 99 97 99 Oximetry O2 Sat by Pulse Oximetry [ Bilateral] 0109/17/21 09/17/21 09:37 09:40 09:42 Temperature Pulse Rate 100 H 100 H 104 H Respiratory Rate Blood Pressure 119/56 Blood Pressure [Left] O2 Sat by Pulse 99 99 Oximetry O2 Sat by Pulse Oximetry [ Bilateral] 09/17/21 09/17/21 09/17/21 09:47 09:52 09:57 Temperature Pulse Rate 95 H 102 H 97 H Respiratory Rate Blood Pressure Blood Pressure [Left] O2 Sat by Pulse 99 98 98 Oximetry O2 Sat by Pulse Oximetry [ Bilateral] 09/17/21 09/17/21 09/17/21 10:02 10:07 10:11 Temperature Pulse Rate 95 H 92 H 101 H Respiratory Rate Blood Pressure 104/51 Blood Pressure [Left] O2 Sat by Pulse 98 96 Oximetry O2 Sat by Pulse Oximetry [ Bilateral] 09/17/21 09/17/21 09/17/21 10:12 10:17 10:22 Temperature Pulse Rate 103 H 107 H 102 H Respiratory Rate Blood Pressure Blood Pressure [Left] O2 Sat by Pulse 98 98 97 Oximetry O2 Sat by Pulse Oximetry [ Bilateral] 09/17/21 09/17/21 09/17/21 10:27 10:32 10:37 Temperature Pulse Rate 93 H 91 H 91 H Respiratory Rate Blood Pressure Blood Pressure [Left] O2 Sat by Pulse 98 98 98 Oximetry O2 Sat by Pulse Oximetry [ Bilateral] 09/17/21 09/17/21 09/17/21 10:40 10:42 10:47 Temperature Pulse Rate 88 90 89 Respiratory Rate Blood Pressure 124/59 Blood Pressure [Left] O2 Sat by Pulse 98 97 Oximetry O2 Sat by Pulse Oximetry [ Bilateral] 09/17/21 09/17/21 09/17/21 10:52 10:57 11:02 Temperature Pulse Rate 87 89 89 Respiratory Rate Blood Pressure Blood Pressure [Left] O2 Sat by Pulse 98 98 98 Oximetry O2 Sat by Pulse Oximetry [ Bilateral] 09/17/21 09/17/21 09/17/21 11:07 11:12 11:17 Temperature Pulse Rate 90 94 H 88 Respiratory Rate Blood Pressure 133/73 Blood Pressure [Left] O2 Sat by Pulse 97 98 97 Oximetry O2 Sat by Pulse Oximetry [ Bilateral] 09/17/21 09/17/21 09/17/21 11:22 11:27 11:32 Temperature Pulse Rate 88 90 89 Respiratory Rate Blood Pressure Blood Pressure [Left] O2 Sat by Pulse 98 98 98 Oximetry O2 Sat by Pulse Oximetry [ Bilateral] 09/17/21 09/17/21 09/17/21 11:37 11:41 11:42 Temperature Pulse Rate 96 H 88 91 H Respiratory Rate Blood Pressure 132/62 Blood Pressure [Left] O2 Sat by Pulse 98 98 Oximetry O2 Sat by Pulse Oximetry [ Bilateral] 09/17/21 09/17/21 09/17/21 11:47 11:52 11:57 Temperature Pulse Rate 99 H 102 H 95 H Respiratory Rate Blood Pressure Blood Pressure [Left] O2 Sat by Pulse 99 99 98 Oximetry O2 Sat by Pulse Oximetry [ Bilateral] 09/17/21 09/17/21 09/17/21 12:02 12:07 12:10 Temperature Pulse Rate 97 H 86 93 H Respiratory Rate Blood Pressure 139/93 Blood Pressure [Left] O2 Sat by Pulse 98 99 Oximetry O2 Sat by Pulse Oximetry [ Bilateral] 09/17/21 09/17/21 09/17/21 12:12 12:17 12:22 Temperature Pulse Rate 92 H 88 98 H Respiratory Rate Blood Pressure Blood Pressure [Left] O2 Sat by Pulse 98 98 98 Oximetry O2 Sat by Pulse Oximetry [ Bilateral] 09/17/21 09/17/21 09/17/21 12:27 12:32 12:37 Temperature Pulse Rate 91 H 87 90 Respiratory Rate Blood Pressure Blood Pressure [Left] O2 Sat by Pulse 100 98 98 Oximetry O2 Sat by Pulse Oximetry [ Bilateral] 09/17/21 09/17/21 09/17/21 12:41 12:42 12:47 Temperature Pulse Rate 87 88 89 Respiratory Rate Blood Pressure 128/61 Blood Pressure [Left] O2 Sat by Pulse 99 99 Oximetry O2 Sat by Pulse Oximetry [ Bilateral] 09/17/21 09/17/21 09/17/21 12:52 12:57 13:02 Temperature Pulse Rate 87 96 H 85 Respiratory Rate Blood Pressure Blood Pressure [Left] O2 Sat by Pulse 99 98 98 Oximetry O2 Sat by Pulse Oximetry [ Bilateral] 09/17/21 09/17/21 09/17/21 13:07 13:11 13:12 Temperature Pulse Rate 85 88 89 Respiratory Rate Blood Pressure 139/71 Blood Pressure [Left] O2 Sat by Pulse 99 99 Oximetry O2 Sat by Pulse Oximetry [ Bilateral] 09/17/21 09/17/21 09/17/21 13:17 13:22 13:27 Temperature Pulse Rate 94 H 89 88 Respiratory Rate Blood Pressure Blood Pressure [Left] O2 Sat by Pulse 99 99 99 Oximetry O2 Sat by Pulse Oximetry [ Bilateral] 09/17/21 09/17/21 09/17/21 13:32 13:37 13:41 Temperature Pulse Rate 100 H 98 H 96 H Respiratory Rate Blood Pressure 189/94 Blood Pressure [Left] O2 Sat by Pulse 99 99 Oximetry O2 Sat by Pulse Oximetry [ Bilateral] 09/17/21 13:42 Temperature Pulse Rate 90 Respiratory Rate Blood Pressure Blood Pressure [Left] O2 Sat by Pulse 99 Oximetry O2 Sat by Pulse Oximetry [ Bilateral] - Exam Breasts: deferred Cardiovascular: Regular rate Lungs: Normal air movement FHR: category 1 Uterine Contraction Monitor Mode: Internal Cervical Dilatation: 5 (vertex) Cervical Effacement Percentage: 60 (Pitocin @ 6mu/min) station: -2 Uterine Contraction Pattern: Irregular Uterine Tone Measurement Phase: Resting Uterine Contraction Intensity: Mild Extremities: edema - Labs Labs: Abnormal Labs 09/15/21 21:45 Hgb 9.3 L Hct 29.8 L MCV 77 L MCH 24 L RDW 16.1 H Laboratory Results - last 24 hr 09/16/21 09/16/21 09/17/21 14:11 20:26 03:36 POC Glucose 80 75 87 09/17/21 09:36 POC Glucose 73
[2021-09-17] MEDS ORDERED: LIDOCAINE MPF (2%) 20 MG/1 ML VIAL 5 ML ONE (13:59)
[2021-09-17] MEDS ORDERED: BUPIVACAINE/PF (0.25%) 2.5 MG/ML 10 ML VIAL INFILTRATI ONE (15:42)
[2021-09-17] MEDS ORDERED: ONDANSETRON 4 MG/2 ML INJ IV PRN (22:57)
[2021-09-17] MEDS ORDERED: LANOLIN/ZINC/DIMETHICONE (LANSINOH) 7 GM TP PRN (22:57)
[2021-09-17] MEDS ORDERED: diphenhydrAMINE 25 MG CAP PO PRN (22:57)
[2021-09-17] MEDS ORDERED: WITCH HAZEL/ GLYCERIN PAD TP PRN (22:57)
[2021-09-17] MEDS ORDERED: MAGNESIUM HYDROXIDE (MOM) ORAL LIQD UDC PO PRN (22:57)
[2021-09-17] MEDS ORDERED: PROMETHAZINE 25 MG TAB PO PRN (22:57)
[2021-09-17] MEDS ORDERED: oxyCODONE /ACETAMINOPHEN 5-325MG TAB PO PRN (22:57)
--- NOTE | 2021-09-17 23:04 | Procedure Note ---
OB Delivery Note - Delivery Date of Delivery: 09/17/21 (2234) Surgeon: PARAMJIT MIRZA (CNM) Estimated blood loss: 200cc - Vaginal Delivery presentation: vertex Delivery position: OA (DONALD) Intrapartum events: none Delivery induction: misoprostol Delivery augmentation: rupture of membranes (AROM @ 0840, clear), pitocin Delivery monitor: internal FHT, internal uterine Route of delivery: Delivery placenta: spontaneous (2238, pride) Delivery cord: 3 umbilical vessels Episiotomy: none Delivery laceration: none Anesthesia: epidural Delivery comments: of viable, crying female placed directly to maternal abdomen. Cord double clamped and cut by myself after cessation of pulsation. Cord blood collected. Placenta spontaneously delivered, disposed per hospital policy. Uterus firm U-2 (very difficult to palpate secondary to body habitus), hemostasis maintained. Perineum intact. Mother and baby safe, stable and left in care of RN. - A at 1 minute: 8 at 5 minutes: 9 Gender: Female (Weight: 3660 gms (8lbs 1oz) 20 inches)
[2021-09-18] MEDS: IBUPROFEN 600 MG TAB PO SCH ×3 (06:39→17:25)
--- NOTE | 2021-09-18 07:34 | Progress Note ---
Assessment and Plan - Patient Problems (1) Anemia affecting Current Visit: Yes Status: Acute Qualifiers: Trimester: third trimester Qualified Code(s): O99.013 - Anemia complicating , third trimester (2) Chronic hypertension Current Visit: Yes Status: Acute (3) Encounter for induction of labor Current Visit: Yes Status: Acute (4) Gestational diabetes Current Visit: Yes Status: Acute Qualifiers: Gestational diabetes mellitus control: diet-controlled (5) Morbid obesity with BMI of 50.0-59.9, adult Current Visit: Yes Status: Acute (6) Normal spontaneous vaginal delivery Current Visit: Yes Status: Acute Plan to address problem: Routine care (7) Term of female Current Visit: Yes Status: Acute Subjective - Subjective Date of service: 09/18/21 Principal diagnosis: CHTN, Gestational DM, Morbid Obesity Interval history: Pt without complaints this morning Patient reports: appetite normal, voiding normally, pain well controlled, ambulating normally : doing well Objective - Vital Signs Latest vital signs: Vital Signs Temp Pulse Resp BP BP Pulse Ox Pulse Ox 09/18/21 04:25 98.0 F 106 H 18 121/61 96 09/18/21 01:36 97 09/18/21 01:26 98.5 F 111 H 16 122/70 97 09/18/21 00:23 104 H 98 09/18/21 00:18 106 H 98 09/18/21 00:17 104 H 147/67 09/18/21 00:13 108 H 98 09/18/21 00:09 101 H 149/73 09/18/21 00:08 102 H 99 09/18/21 00:03 103 H 99 09/17/21 23:58 105 H 97 09/17/21 23:53 98 H 97 09/17/21 23:48 105 H 97 09/17/21 23:43 105 H 98 09/17/21 23:39 106 H 136/69 09/17/21 23:38 105 H 99 09/17/21 23:33 109 H 98 09/17/21 23:28 111 H 98 09/17/21 23:23 113 H 98 09/17/21 23:18 106 H 99 09/17/21 23:13 112 H 98 09/17/21 23:09 104 H 141/76 09/17/21 23:08 113 H 98 09/17/21 23:05 92 H 91 09/17/21 23:03 102 H 100 09/17/21 22:59 106 H 147/78 09/17/21 22:58 108 H 100 09/17/21 22:53 104 H 100 09/17/21 22:48 107 H 99 09/17/21 22:45 99.0 F 09/17/21 22:43 107 H 139/65 99 09/17/21 22:40 110 H 147/88 09/17/21 22:37 111 H 99 09/17/21 22:35 135 H 94 09/17/21 22:32 119 H 100 09/17/21 22:27 98 H 99 09/17/21 22:22 104 H 100 09/17/21 22:17 103 H 100 09/17/21 22:12 102 H 98 09/17/21 22:10 111 H 145/74 09/17/21 22:09 39 L 09/17/21 22:07 115 H 100 09/17/21 22:02 107 H 100 09/17/21 21:57 112 H 99 09/17/21 21:56 101 H 91 09/17/21 21:52 106 H 99 09/17/21 21:50 106 H 151/77 09/17/21 21:47 101 H 99 09/17/21 21:42 100 H 99 09/17/21 21:40 97 H 145/71 09/17/21 21:37 97 H 99 09/17/21 21:32 102 H 99 09/17/21 21:27 102 H 100 09/17/21 21:22 103 H 99 09/17/21 21:17 99 H 100 09/17/21 21:12 103 H 99 09/17/21 21:10 97 H 142/81 09/17/21 21:07 99 H 99 09/17/21 21:02 98 H 99 09/17/21 20:57 102 H 98 09/17/21 20:52 104 H 99 09/17/21 20:47 99 H 98 09/17/21 20:42 97 H 98 09/17/21 20:41 95 H 146/71 09/17/21 20:37 104 H 98 09/17/21 20:32 99 H 98 09/17/21 20:27 100 H 100 09/17/21 20:22 101 H 99 09/17/21 20:17 103 H 98 09/17/21 20:12 103 H 99 09/17/21 20:10 102 H 125/60 09/17/21 20:07 103 H 97 09/17/21 20:02 98 H 98 09/17/21 19:57 104 H 98 09/17/21 19:52 103 H 99 09/17/21 19:50 98 09/17/21 19:49 98.4 F 09/17/21 19:47 115 H 98 09/17/21 19:42 101 H 99 09/17/21 19:41 108 H 110/59 09/17/21 19:37 108 H 98 09/17/21 19:32 116 H 99 09/17/21 19:27 97 H 98 09/17/21 19:22 97 H 97 09/17/21 19:17 97 H 97 09/17/21 19:12 101 H 98 09/17/21 19:10 96 H 117/62 09/17/21 19:07 95 H 97 09/17/21 19:02 95 H 97 09/17/21 18:57 93 H 98 09/17/21 18:52 91 H 97 09/17/21 18:47 88 98 09/17/21 18:42 96 H 124/58 97 09/17/21 18:37 95 H 98 09/17/21 18:35 91 09/17/21 18:32 90 99 09/17/21 18:27 97 H 98 09/17/21 18:22 92 H 100 09/17/21 18:17 95 H 97 09/17/21 18:12 95 H 97 09/17/21 18:11 93 H 126/70 09/17/21 18:07 97 H 98 09/17/21 18:03 103 H 94 09/17/21 18:02 104 H 99 09/17/21 17:57 91 H 99 09/17/21 17:52 98 H 98 09/17/21 17:47 94 H 98 09/17/21 17:42 95 H 96 09/17/21 17:40 96 H 117/72 09/17/21 17:37 94 H 99 09/17/21 17:32 97 H 98 01/20/22 17:27 99 H 98 09/17/21 17:22 99 H 98 09/17/21 17:17 102 H 98 09/17/21 17:12 96 H 98 09/17/21 17:11 90 124/67 09/17/21 17:07 96 H 98 09/17/21 17:02 92 H 98 09/17/21 16:57 91 H 98 09/17/21 16:52 94 H 98 09/17/21 16:47 91 H 97 09/17/21 16:42 93 H 97 09/17/21 16:40 94 H 114/58 09/17/21 16:37 102 H 97 09/17/21 16:32 94 H 99 09/17/21 16:30 98.4 F 09/17/21 16:27 102 H 99 09/17/21 16:22 97 H 98 09/17/21 16:17 99 H 98 09/17/21 16:12 95 H 97 09/17/21 16:11 91 H 122/61 09/17/21 16:07 99 H 97 09/17/21 16:02 100 H 98 09/17/21 15:57 96 H 98 09/17/21 15:52 105 H 98 09/17/21 15:47 95 H 99 09/17/21 15:42 99 H 99 09/17/21 15:37 97 H 100 09/17/21 15:35 108 H 128/61 09/17/21 15:32 92 H 100 09/17/21 15:27 107 H 99 09/17/21 15:22 93 H 99 09/17/21 15:17 89 100 09/17/21 15:12 99 H 99 09/17/21 15:10 89 128/61 09/17/21 15:07 90 99 09/17/21 15:02 91 H 98 09/17/21 14:57 94 H 98 09/17/21 14:52 93 H 99 09/17/21 14:47 97 H 98 09/17/21 14:42 90 100 09/17/21 14:41 93 H 126/57 09/17/21 14:37 106 H 100 09/17/21 14:32 103 H 100 09/17/21 14:27 94 H 99 09/17/21 14:22 99 H 99 09/17/21 14:17 104 H 99 09/17/21 14:12 120 H 99 09/17/21 14:11 110 H 124/58 09/17/21 14:07 104 H 98 09/17/21 14:02 104 H 97 09/17/21 13:57 95 H 98 09/17/21 13:52 89 98 09/17/21 13:47 98 H 100 09/17/21 13:42 90 99 09/17/21 13:41 96 H 189/94 09/17/21 13:37 98 H 99 09/17/21 13:32 100 H 99 09/17/21 13:27 88 99 09/17/21 13:22 89 99 09/17/21 13:17 94 H 99 09/17/21 13:12 89 99 09/17/21 13:11 88 139/71 09/17/21 13:07 85 99 09/17/21 13:02 85 98 09/17/21 12:57 96 H 98 09/17/21 12:52 87 99 09/17/21 12:47 89 99 09/17/21 12:42 88 99 09/17/21 12:41 87 128/61 09/17/21 12:37 90 98 09/17/21 12:32 87 98 09/17/21 12:27 91 H 100 09/17/21 12:22 98 H 98 09/17/21 12:17 88 98 09/17/21 12:12 92 H 98 09/17/21 12:10 93 H 139/93 09/17/21 12:07 86 99 09/17/21 12:02 97 H 98 09/17/21 11:57 95 H 98 09/17/21 11:52 102 H 99 09/17/21 11:47 99 H 99 09/17/21 11:42 91 H 98 09/17/21 11:41 88 132/62 09/17/21 11:37 96 H 98 09/17/21 11:32 89 98 09/17/21 11:27 90 98 09/17/21 11:22 88 98 09/17/21 11:17 88 97 09/17/21 11:12 94 H 133/73 98 09/17/21 11:07 90 97 09/17/21 11:02 89 98 09/17/21 10:57 89 98 09/17/21 10:52 87 98 09/17/21 10:47 89 97 09/17/21 10:42 90 98 09/17/21 10:40 88 124/59 09/17/21 10:37 91 H 98 09/17/21 10:32 91 H 98 09/17/21 10:27 93 H 98 09/17/21 10:22 102 H 97 09/17/21 10:17 107 H 98 09/17/21 10:12 103 H 98 09/17/21 10:11 101 H 104/51 09/17/21 10:07 92 H 96 09/17/21 10:02 95 H 98 09/17/21 09:57 97 H 98 09/17/21 09:52 102 H 98 09/17/21 09:47 95 H 99 09/17/21 09:42 104 H 99 09/17/21 09:40 100 H 119/56 09/17/21 09:37 100 H 99 09/17/21 09:32 112 H 99 09/17/21 09:27 87 97 09/17/21 09:22 95 H 99 09/17/21 09:17 99 H 98 09/17/21 09:12 98 H 98 09/17/21 09:10 100 H 134/69 09/17/21 09:07 97 H 98 09/17/21 09:02 94 H 97 09/17/21 08:57 95 H 100 09/17/21 08:52 91 H 99 09/17/21 08:47 101 H 99 09/17/21 08:42 98.6 F 100 H 99 09/17/21 08:37 96 H 99 09/17/21 08:32 102 H 98 09/17/21 08:27 93 H 98 09/17/21 08:22 91 H 99 09/17/21 08:17 92 H 98 09/17/21 08:12 94 H 119/50 99 09/17/21 08:07 95 H 99 09/17/21 08:02 95 H 98 09/17/21 07:57 94 H 98 09/17/21 07:52 95 H 98 09/17/21 07:47 92 H 99 09/17/21 07:42 93 H 99 09/17/21 07:40 90 122/58 09/17/21 07:37 94 H 99 09/17/21 07:33 98.1 F 95 H 20 110/58 98 09/17/21 07:32 96 H 99 Intake and Output 09/17/21 09/18/21 09/18/21 22:59 06:59 14:59 Intake Total 175.434 300 Output Total 590 Balance 175.434 -290 Intake: IV 175.434 PITOCin/NS 30 UNIT/500ML 175.434 30 units In 500 ml @ 2 mls/hr IV TITR MINDY Rx#: [id number] Intake, Free Water 300 Output: Urine 590 Void 590 Other: Total, Output Amount 400 # Voids Void 1 Estimated Blood Loss 200 - Exam Breasts: Present: deferred Abdomen: Present: soft (obese ) Uterus: Present: fundal height at umbilicus Extremities: Present: edema (trace ) - Labs Labs: Abnormal lab results 09/17/21 Range/Units 15:33 POC Glucose 62 L (70-105) mg/dL
[2021-09-18] MEDS: PRENATAL VIT27-FE FUMARATE-FOLIC ACID VIT TAB PO SCH (09:58)
[2021-09-18 11:22] LABS: Hematocrit 23.6 % (30.3-42.9); Hemoglobin 7.5 gm/dl (10.1-14.3)
--- NOTE | 2021-09-18 11:45 | Post Anesthesia Evaluation ---
- Post Anesthesia Evaluation Patient Participated: Yes Airway Patent: Yes Stable Respiratory Function: Yes Nausea/Vomiting: No Temp > 96.8F: Yes Pain Manageable: Yes Adequeate Hydration: Yes Anesthesia Complications: No Block Receding Appropriately: Yes Patient on Ventilator: No
[2021-09-19] MEDS: IBUPROFEN 600 MG TAB PO SCH ×2 (01:04→17:02)
--- NOTE | 2021-09-19 15:03 | Progress Note ---
Assessment and Plan PPD 2 s/p . Doing well. Plan for discharge today. Subjective - Subjective Date of service: 09/19/21 Principal diagnosis: CHTN, Gestational DM, Morbid Obesity Patient reports: appetite normal, voiding normally, pain well controlled, ambulating normally [place]: doing well Objective - Vital Signs Latest vital signs: Vital Signs Temp Pulse Resp BP Pulse Ox Pulse Ox 09/19/21 08:15 98 09/19/21 07:45 97.8 F 91 H 20 128/71 98 09/19/21 00:40 98.2 F 97 H 20 133/66 100 09/19/21 00:33 98.2 F 97 H 20 150/99 98 09/18/21 22:00 98 09/18/21 21:00 97.6 F 96 H 20 150/92 98 Intake and Output 09/18/21 09/19/21 09/19/21 22:59 06:59 14:59 Intake Total 240 360 Balance 240 360 Intake: Oral 240 360 Other: Total, Intake Amount 240 120 # Voids Void 1 1 1 - Exam Breasts: Present: deferred Cardiovascular: Present: Regular rate, Normal S1, Normal S2 Lungs: Present: Clear to auscultation, Normal air movement Abdomen: Present: normal appearance, soft Vulva: both: normal Uterus: Present: normal Extremities: Present: normal
--- NOTE | 2021-09-19 15:07 | Discharge Summary ---
Providers - Providers Date of Admission: 09/15/21 22:05 Date of discharge: 09/19/21 Attending physician: CASPER BAIRD 09/17/21 22:59 Consult to Computer System Specialist [CONS] Routine Reason For Exam: assistance with , SNS Primary care physician: CASPER BAIRD Hospitalization Reason for admission: active labor Delivery: complications: none Discharge diagnosis: IUP at term delivered baby: female Hospital course: Unremarkable Condition at discharge: Good Disposition: 01 HOME / SELF CARE / HOMELESS Plan - Discharge Medications Prescriptions: Ferrous Sulfate [Feosol 325 MG tab] 325 mg PO BID #60 tablet Ibuprofen [Motrin] 800 mg PO Q8HR PRN #30 tablet PRN Reason: Pain, Moderate (4-6) - Provider Discharge Summary Activity: routine, no sex for 6 weeks, no heavy lifting 4 weeks, no strenuous exercise Diet: routine Instructions: routine Additional instructions: [] Smoking cessation referral if applicable(refer to patient education folder for contact #) [] Refer to [facility]'s [facility] Booklet Call your doctor immediately for: * Fever > 100.5 * Heavy vaginal bleeding ( >1 pad per hour) * Severe persistent headache * Shortness of breath * Reddened, hot, painful area to leg or breast * Drainage or odor from incision. * Keep incision clean and dry at all times and follow doctor's instructions regarding bathing/showering - Follow up plan Follow up: CASPER BAIRD MD [Primary Care Provider] - 6 Weeks
[2021-09-19 16:31] VITALS: BP 137/75
[2021-09-19] MEDS: PRENATAL VIT27-FE FUMARATE-FOLIC ACID VIT TAB PO SCH (17:02)
[2021-09-19] MEDS ORDERED: FERROUS SULFATE 325 MG TAB PO SCH (22:00)
== END 2021-09-19 17:37 | disposition home or self-care (01) | DRG 774 ==
LOC: TRG 19:46 → UNDOADMIN 20:42 → LD 20:42 → OB 09-18 00:55
PROVIDERS: ADMIT Obstetrics & Gynecology; ATTEND Obstetrics & Gynecology
PROC: 10E0XZZ Delivery of Products of Conception, External Approach (ICD-10-PCS; principal; 2021-09-17)
PROC: 3E0R3BZ Introduction of Anesthetic Agent into Spinal Canal, Percutaneous Approach (ICD-10-PCS; 2021-09-17)
PROC: 00HU33Z Insertion of Infusion Device into Spinal Canal, Percutaneous Approach (ICD-10-PCS; 2021-09-17)
PROC: 10907ZC Drainage of Amniotic Fluid, Therapeutic from Products of Conception, Via Natural or Artificial Opening (ICD-10-PCS; 2021-09-17)
PROC: 10H07YZ Insertion of Other Device into Products of Conception, Via Natural or Artificial Opening (ICD-10-PCS; 2021-09-17)
PROC: 3E0P7VZ Introduction of Hormone into Female Reproductive, Via Natural or Artificial Opening (ICD-10-PCS; 2021-09-17)
DX: O24.429 Gestational diabetes mellitus in childbirth, unspecified control (principal); O10.92 Unspecified pre-existing hypertension complicating childbirth; Z37.0 Single live birth; Z3A.38 38 weeks gestation of pregnancy; O99.214 Obesity complicating childbirth; E66.01 Morbid (severe) obesity due to excess calories; O99.62 Diseases of the digestive system complicating childbirth; K21.9 Gastro-esophageal reflux disease without esophagitis; O99.02 Anemia complicating childbirth; Z88.0 Allergy status to penicillin
CPT/HCPCS: 36415; 59200; 82962; 85014; 85018; 85027; 86850; 86900; 86901; 88307; G0378; J3490; J0595; J2590; J7120; U0003